=== PATIENT | female | born 1965 | race Caucasian/White ===

== ENCOUNTER 2016-08-23 07:47 | Day surgery (SDC) | payer OTHER ==
[2016-08-23] MEDS ORDERED: ACETAMINOPHEN 325 MG TABLET (FP) PO ONE (09:00)
[2016-08-23 09:02] LABS: ALK PHOS 41 U/L (45-117); ANION GAP 5 (8-16); BILIRUBIN,TOTAL 0.9 mg/dL (0.2-1.0); CALCIUM 9.5 mg/dL (8.5-10.1); CO2 33 mmol/L (21-32); CREATININE 0.7 mg/dL (0.55-1.02); GLUCOSE,RANDOM 98 mg/dL (74-106); SGOT/AST 33 U/L (15-37); SGPT/ALT 46 U/L (12-78)
[2016-08-23] MEDS ORDERED: ACETAMINOPHEN 325 MG TABLET (FP) ONE (09:25)
[2016-08-23] MEDS ORDERED: ZOLEDRONIC ACID/MAN/WATER 100 ML IVPB ONE (09:30)
[2016-08-23 09:52] VITALS: TEMP 97.7
[2016-08-23 10:23] VITALS: BP 107/57; PULSE 77
== END 2016-08-23 10:23 | disposition home or self-care (01) ==
LOC: JCHEMO 07:47
PROVIDERS: ATTEND Internal Medicine Endocrinology, Diabetes & Metabolism
PROC: 3E033GC Introduction of Other Therapeutic Substance into Peripheral Vein, Percutaneous Approach (ICD-10-PCS; principal; 2016-08-23)
DX: M81.0 Age-related osteoporosis without current pathological fracture (principal)
CPT/HCPCS: 96365; J3489; 36415; 80053

== ENCOUNTER 2018-12-04 08:00 | Day surgery (SDC) | payer OTHER ==
[2018-12-04] MEDS ORDERED: ACETAMINOPHEN 325 MG TABLET (FP) PO ONE (08:30)
[2018-12-04] MEDS ORDERED: ACETAMINOPHEN 325 MG TABLET (FP) ONE (08:54)
[2018-12-04] MEDS ORDERED: ZOLEDRONIC ACID/MAN/WATER 5 MG/100 ML INFUS..BTL IVPB ONE (09:00)
[2018-12-04 09:05] LABS: POTASSIUM 4.2 mmol/L (3.5-5.1)
[2018-12-04 09:09] LABS: ALBUMIN 4.4 g/dl (3.4-5.0); BLOOD UREA NITROGEN 16.7 mg/dL (7-18); CALCIUM 9.9 mg/dL (8.5-10.1)
[2018-12-04 09:15] LABS: BILIRUBIN,TOTAL 0.7 mg/dL (0.2-1); CREATININE 0.8 mg/dL (0.55-1.3); TOT PROT 8.2 g/dl (6.4-8.2)
[2018-12-04 11:11] VITALS: BP 102/53; PULSE 80; TEMP 98.3
== END 2018-12-04 10:34 | disposition home or self-care (01) ==
LOC: JINFUSION 08:00
PROVIDERS: ATTEND Internal Medicine Endocrinology, Diabetes & Metabolism
PROC: 3E033GC Introduction of Other Therapeutic Substance into Peripheral Vein, Percutaneous Approach (ICD-10-PCS; principal; 2018-12-04)
DX: M81.0 Age-related osteoporosis without current pathological fracture (principal)
CPT/HCPCS: 36415; 80053; 96365; J3489

== ENCOUNTER 2020-12-15 10:25 | Day surgery (SDC) | payer OTHER ==
[2020-12-15 10:49] VITALS: TEMP 97.9
[2020-12-15] MEDS ORDERED: ACETAMINOPHEN 325 MG TABLET (FP) PO ONE (11:00)
[2020-12-15] MEDS ORDERED: ZOLEDRONIC ACID/MAN/WATER 5 MG/100 ML INFUS..BTL IVPB ONE (11:15)
[2020-12-15 12:21] VITALS: BP 125/65; PULSE 80
== END 2020-12-15 12:25 | disposition home or self-care (01) ==
LOC: FINFUSION 10:25 → FM/S 10:27 → FINFUSION 12:25
PROVIDERS: ATTEND Internal Medicine Endocrinology, Diabetes & Metabolism
PROC: 3E033GC Introduction of Other Therapeutic Substance into Peripheral Vein, Percutaneous Approach (ICD-10-PCS; principal; 2020-12-15)
DX: M81.0 Age-related osteoporosis without current pathological fracture (principal)
CPT/HCPCS: 96365; J3489